=== PATIENT | male | born 1930 | race Caucasian/White ===

== ENCOUNTER 2017-03-30 09:41 | Emergency (ER) | payer OTHER ==
[~2017-03-30] VITALS: Ht 180.3 cm; Wt 78.0 kg
--- NOTE | ~2017-03-30 | EKG ---
[place] [id number] [facility] [employer] [place] [address] ELECTROCARDIOGRAM REPORT Name: JAMEE GORDILLO [facility] [id number] Admission: 03/30/17 Attend Phys: Discharge: 03/30/17 Date of : [birth year] Report #: [id number] THIS REPORT FOR: //name// [facility] ED Test Date: 2017-03-30 Test Time: 09:49:11 Pat Name: AJMEE GORDILLO Department: Room: Gender: Senior Administrative Services Officer: CWEIBRANDON : 1930 Requested By: Rosendo Briggs Order Number: [id number] MD: Xu Bains Measurements Intervals [place] Rate: 56 P: 3 ME: 137 QRS: -53 QRSD: 149 T: 10 QT: 458 QTc: 443 Interpretive Statements Sinus rhythm RBBB and LAFB Compared to ECG 05/16/2016 13:08:53 No significant changes Electronically Signed On 03-30-2017 14:14:46 [employer] ASSISTANT by Xu Bains [email or web address] <ELECTRONICALLY SIGNED> By: Xu Bains MD, [facility] 03/30/17 1414 0949 0949 Xu Bains MD, FACC /EPI
[~2017-03-30 09:41] MED LIST: CITRATE OF MAG296 ML PO; COLACE100 MG PO; DOXAZOSIN MESYLA2 MG PO; FLOMAX0.4 MG PO; LIPITOR10 MG PO; NAPROSYN250 MG PO; PROSTATE MEDICATION; VYTORIN 10-201 EACH
[2017-03-30] MEDS ORDERED: XALATAN2.5 ML OPHTHALMIC (09:59)
[2017-03-30] MEDS ORDERED: COZAAR100 MG PO (09:59)
[2017-03-30] MEDS ORDERED: PROSCAR 5MG TABL5 MG PO (09:59)
[2017-03-30 10:01] LABS: HEMATOCRIT 37.8 % (42.0-52.0); HEMOGLOBIN 12.3 gm/dL (14.0-18.0); MCH 29.6 pg (26.0-34.0); MCHC 32.6 g/dL (28.0-37.0); MCV 90.6 fL (80.0-100.0); PLATELET COUNT 174 thou/uL (150-400); RBC 4.17 mil/uL (4.50-6.00); RDW 14.6 % (10.5-14.5); WBC 7.8 thou/uL (4.0-11.0)
[2017-03-30 10:12] LABS: ANION GAP 7 mmol/L (7-16); BUN 33 mg/dL (7-18); CALCIUM 9.7 mg/dL (8.5-10.1); CHLORIDE 106 mmol/L (98-107); CO2 28 mmol/L (21-32); CREATININE 1.6 mg/dL (0.7-1.3); GLUCOSE 106 mg/dL (74-106); POTASSIUM 4.6 mmol/L (3.5-5.1); SODIUM 141 mmol/L (136-145)
[2017-03-30 10:21] LABS: ALBUMIN 3.9 g/dL (3.4-5.0); SGOT 20 U/L (15-37); SGPT 28 U/L (30-65); TOTAL BILIRUBIN 0.3 mg/dL (<0.1-1.0); TOTAL PROTEIN 7.2 g/dL (6.4-8.2); TROPONIN-I < 0.04 ng/mL (<0.06)
[2017-03-30 10:35] LABS: ABSOLUTE NEUTROPHILS 3.7 thou/uL (1.4-8.2); PLATELET ESTIMATE NORMAL
[2017-03-30 10:53] LABS: URINE BILIRUBIN NEGATIVE (Negative); URINE BLOOD NEGATIVE (Negative); URINE CLARITY CLEAR; URINE COLOR YELLOW; URINE GLUCOSE-RANDOM* NEGATIVE (Negative); URINE KETONES NEGATIVE (Negative); URINE LEUKOCYTES NEGATIVE (Negative); URINE NITRITE NEGATIVE (Negative); URINE PROTEIN (DIPSTICK) NEGATIVE (Negative); URINE UROBILINOGEN 0.2 E.U./dl (0.2-1.0)
[2017-03-30] MEDS ORDERED: MELATONIN1 MG PO (11:02)
== END 2017-03-30 11:11 | disposition home or self-care (01) ==
LOC: ER 09:41
PROVIDERS: Physician Assistant
DX: R00.2 Palpitations (principal); D53.9 Nutritional anemia, unspecified; N18.9 Chronic kidney disease, unspecified; R06.02 Shortness of breath

== ENCOUNTER → 2017-04-06 | Outpatient (CLI) | payer OTHER ==
[~2017-04-06] MED LIST changes: +COZAAR100 MG PO; +MELATONIN1 MG PO; +PROSCAR 5MG TABL5 MG PO; +XALATAN2.5 ML OPHTHALMIC
--- NOTE | ~2017-04-06 | 2DMMODE ---
[facility] [employer] [place] [address] 2 D/M-MODE ECHOCARDIOGRAM Name: JAMEE GORDILLO Room #: REG [facility]#: [id number] Admission: 04/06/17 Attend Phys: Anthony Ruiz Discharge: Date of : [birth year] Date of Service: 04/06/17 1022 Report #: [id number] THIS REPORT FOR: //name// APPROVED REPORT Study performed: 04/06/2017 09:15:31 EXAM: Comprehensive 2D, Doppler, and color-flow Echocardiogram Patient Location: Out-Patient Status: routine BSA: 1.96 HR: 70 bpm BP: 157/60 mmHg Rhythm: NSR 2D Dimensions RVDd: 32.80 mm LVEF(%): 67.27 (>50%) IVSd: 12.36 (7-11mm) LVOT Diam: 20.81 (18-24mm) LVDd: 47.34 mm PWd: 10.53 (7-11mm) Ascending Ao: 34.61 (22-36mm) LVDs: 29.67 (25-40mm) Aortic Root: 36.74 mm Ferrari's LVEF: 67.27 % Volumes Left Atrial Volume (Systole) Single Plane 4CH: 35.81 mL Single Plane 2CH: 47.89 mL LA ESV Index: 22.00 mL/m2 Aortic Valve AoV Peak Candido.: 1.72 m/s AO Peak Gr.: 11.83 mmHg LVOT Max P.69 mmHg LVOT Max V: 1.08 m/s MANDY Vmax: 2.14 cm2 Mitral Valve E/A Ratio: 0.7 MV Decel. Time: 199.95 ms MV E Max Candido.: 0.82 m/s MV A Candido.: 1.20 m/s MV PHT: 57.98 ms IVRT: 96.89 ms Pulmonary Valve [facility] [employer] [place] [address] 2 D/M-MODE ECHOCARDIOGRAM Name: JAMEE GORDILLO Room #: [facility]#: [id number] Admission: 04/06/17 Attend Phys: Anthony Ruiz Discharge: Date of : [birth year] Date of Service: 04/06/17 1022 Report #: [id number] Peak Candido.: 1.69 m/s PV Peak Gr.: 11.42 mmHg Pulmonary Vein P Vein S: 0.74 m/s P Vein A: 0.45 m/s P Vein D: 0.39 m/s P Vein A Dur.: 110.7 msec P Vein S/D Ratio: 1.90 Tricuspid Valve TR Peak Candido.: 2.84 m/s RAP Estimate: 5.00 mmHg TR Peak Gr.: 32.16 mmHg PA Pressure: 37.00 mmHg Left Ventricle The left ventricle is normal size. Paradoxical septal motion consistent with conduction abnormality. Mild basal septal hypertrophy is present. Left ventricular systolic function is normal. LVEF is 55-60%. Mild diastolic dysfunction is present (impaired relaxation pattern). Right Ventricle The right ventricle is normal size. The right ventricular systolic function is normal. Atria The left atrium size is normal. The right atrium size is normal. Aortic Valve Aortic valve leaflets are mildly thickened and calcified. No aortic regurgitation is present. There is no aortic valvular stenosis. Mitral Valve Mitral valve leaflets are mildly thickened and calcified. Mild mitral annular calcification. Trace to mild mitral regurgitation. No evidence of mitral valve stenosis. Tricuspid Valve The tricuspid valve is normal in structure. Trace to mild tricuspid regurgitation. Estimated PAP is 35-40mmHg. Pulmonic Valve The pulmonary valve is normal in structure. Mild pulmonic regurgitation. [employer] [facility] [address] [place] [address] 2 D/M-MODE ECHOCARDIOGRAM Name: JAMEE GORDILLO Room #: REG [facility]#: [id number] Admission: 04/06/17 Attend Phys: Anthony Ruiz Discharge: Date of : [birth year] Date of Service: 04/06/17 1022 Report #: [id number] The aortic root is normal in size. The ascending aorta is normal in size. IVC is normal in size and collapses >50% with inspiration. Pericardium There is no pericardial effusion. <Conclusion> The left ventricle is normal size. Left ventricular systolic function is normal. Paradoxical septal motion consistent with conduction abnormality. LVEF is 55-60%. Aortic valve leaflets are mildly thickened and calcified. No aortic regurgitation is present. There is no aortic valvular stenosis. Mitral valve leaflets are mildly thickened and calcified. Mild mitral annular calcification. Trace to mild mitral regurgitation. The tricuspid valve is normal in structure. Trace to mild tricuspid regurgitation. Estimated PAP is 35-40mmHg. The pulmonary valve is normal in structure. Mild pulmonic regurgitation. There is no pericardial effusion. <ELECTRONICALLY SIGNED> By: Anthony Rubio MD 04/06/17 1022 1022 1022 Anthony Rubio MD /INF
== END ==
LOC: CV 08:56
DX: I08.1 Rheumatic disorders of both mitral and tricuspid valves (principal)

== ENCOUNTER → 2017-05-22 | Outpatient (CLI) | payer OTHER | LOC: NUC 05:36 | DX: R06.09 Other forms of dyspnea (principal); E78.5 Hyperlipidemia, unspecified; I10 Essential (primary) hypertension; Z87.891 Personal history of nicotine dependence ==